=== PATIENT | female | born 1955 | race Caucasian/White ===

== ENCOUNTER 2020-12-14 09:32 | Inpatient (IN) ==
--- NOTE | 2020-12-08 10:49 | Anesthesiology Consultation ---
Date of Service December 08, 2020 Assessment & Plan (1) Encounter for pre-operative examination: Chart Review Chart Review: Acceptable Risk for Surgery and Patient NOT seen in Pre Admission Testing Per nursing assessment 12/03/2020, patient denies any recent travel. Wears proper PPE. No known Covid infection in the past 90 days. No known Covid positive contacts or Covid related symptoms. Covid test 12/07/20= negative Cystoscopy, right ureteroscopy with stent insertion/ureter biopsy 09/14/20= Done under [facility] with LMA #4. History Surgery Operation Date: 12/14/20 13:50 Proposed Procedures p Dismembered Laparoscopic Robotic Assisted Pyeloplasty - Dustin Carrasco MD Height/Weight Height: 5 ft 4 in Weight: 81.647 kg Allergies Allergy/AdvReac Type Severity Reaction Status Date / Time codeine Allergy Intermediate "knocks me Verified 12/03/20 13:52 out" Penicillins Allergy Intermediate yeast Verified 12/03/20 13:52 infection Tetanus Vaccines and Toxoid Allergy Intermediate hives at Verified 12/03/20 13:52 injection site Medications Home Medications Medication Instructions Recorded Confirmed Last Taken lisinopril 20 mg tablet 20 mg PO QAM 09/08/20 12/03/20 09/13/20 09:00 Past Medical History Medical History History of asthma stable Hypertension Kidney stone Liver nodule recent dx (to follow up with Dr Jacob December 2020) SPENCER (nonalcoholic steatohepatitis) Ureteral mass reason for procedure Past Family History Family History Grandmother No problems noted. Mother Family history of esophageal cancer Throat cancer Lung cancer Father Lung cancer Grandmother (Maternal) Diabetes Other No family history of adverse response to anesthesia Past Surgical History Surgical History H/O bladder repair surgery BLADDER SLING H/O foot surgery RT History of carpal tunnel surgery RT History of colonoscopy History of cystoscopy with stent History of lithotripsy X 8 History of tubal ligation [place] teeth removed Social History Smoking Status: Never smoker Do You Dip or Chew Tobacco: No Hx Alcohol Use: Yes Alcohol type: beer alcohol intake frequency: a few times a month Hx Substance Use: No substance use type: does not use Testing Laboratory Results Laboratory Tests 12/07/20 12/07/20 11:08 11:08 WBC 7.28 Hgb 14.3 Hct 42.1 Plt Count 180 Sodium 142 Potassium 3.8 Chloride 107 Carbon Dioxide 28 BUN 18 Creatinine 0.87 Glucose 81 12/07/2020 = AST: 35 ALT: 32 ALK PHOS: 94 Electrocardiogram Date: 09/10/20 NSR at 94bpm. Low voltage QRS. Chest X-Ray Date: 09/10/20 Findings: + NAD
[~2020-12-14 09:32] MED LIST: LR 15ML/HR IV SCH; MIDAZOLAM HCL 1 MG/ML 2ML VIAL ONE; ceFAZolin 2000MG 2,000 MG/15 ML SYR IV SCH; fentaNYL citrate 100 MCG/2 ML VIAL ONE
--- NOTE | 2020-12-14 11:02 | History & Physical Report ---
Date of Service December 14, 2020 Assessment & Plan (1) Hydronephrosis: (2) Ureteral stricture: Right UPJ stricture/obstruction Plan for robotic assisted laparoscopic dismembered pyeloplasty Risks, benefits, expectations reviewed History of Present Illness Primary Care Provider: Ibrahima Vega 65-year-old female with a right UPJ obstruction/scarringpresenting today for robotic dismembered pyeloplasty Allergies Allergy/AdvReac Type Severity Reaction Status Date / Time codeine Allergy Intermediate "knocks me Verified 12/14/20 09:48 out" Penicillins Allergy Intermediate yeast Verified 12/14/20 09:48 infection Tetanus Vaccines and Toxoid Allergy Intermediate hives at Verified 12/14/20 09:48 injection site Home Medications Medication Instructions Recorded Confirmed Type lisinopril 20 mg tablet 20 mg PO QAM 09/08/20 12/14/20 History acetaminophen [Tylenol Extra 500 mg PO QID PRN 12/14/20 12/14/20 History Strength] Past Med/Surg History Medical History History of asthma stable Hypertension Kidney stone Liver nodule recent dx (to follow up with Dr Jacob December 2020) SPENCER (nonalcoholic steatohepatitis) Ureteral mass reason for procedure Surgical History H/O bladder repair surgery BLADDER SLING H/O foot surgery RT History of carpal tunnel surgery RT History of colonoscopy History of cystoscopy with stent History of lithotripsy X 8 History of tubal ligation [place] teeth removed Family History Grandmother No problems noted. Mother Family history of esophageal cancer Throat cancer Lung cancer Father Lung cancer Grandmother (Maternal) Diabetes Other No family history of adverse response to anesthesia Social History Smoking Status: Never smoker Second Hand Exposure: Yes ( A CHILD); Do You Dip or Chew Tobacco: No; Tobacco Cessation Education Requested by Patient: No Hx Alcohol Use: Yes Alcohol type: beer Hx Substance Use: No Preferred Language: Ivorian Communication Ability: Effective Visual Impairment: No Limitations Sap Senior Developer Required: No Beliefs That Will Affect Care: None Current Living Situation: Spouse Other Information That Helps Us Care for You: No Feels Safe at Home: Yes Safety Concerns: Feels Safe At This Time Assistive Devices: Glasses Review of Systems All systems reviewed & are unremarkable except as noted in HPI & below Physical Exam Constitutional: well developed and well nourished Neck: neck nontender Respiratory: normal respiratory effort; no respiratory distress and does not use accessory muscles Cardiovascular: Rate/Rhythm: regular rate Vessels: radial pulses present Extremities: no edema Gastrointestinal (Abdomen): Inspection/Auscultation: abdomen normal to inspection Percussion/Palpation: abdomen soft; abdomen nontender and no guarding Musculoskeletal: Head/Neck/Chest: normocephalic and head atraumatic Extremities: extremities normal to inspection Skin: no rashes and no lesions Trauma: no evidence of skin trauma Neurologic: awake; not obtunded Speech / Cognition: normal speech Motor/Sensory: no tremor Psychiatric: Orientation: alert and oriented x 3 Lymphatic: no lymphadenopathy Results & Data ([facility]) Vital Signs (Past 12 Hours) Vital Signs Temp Pulse Resp BP Pulse Ox 12/14/20 09:51 36.9 C 92 H 18 164/84 H 95
[2020-12-14] MEDS ORDERED: BUPIVACAINE 0.5 % 5 MG/1 ML MPF 30ML VIAL ONE (11:13)
[2020-12-14] MEDS ORDERED: METOCLOPRAMIDE HCL INJ 5 MG/ML 2 ML VIAL IV PRN (11:14)
[2020-12-14] MEDS ORDERED: PROMETHAZINE HCL 12.5 MG in SODIUM CHLORIDE 0.9% 50 ML IV PRN (11:14)
[2020-12-14] MEDS ORDERED: ONDANSETRON INJ 2 MG/ML 2 ML VIAL IV PRN (11:14)
[2020-12-14] MEDS ORDERED: HYDROmorphone INJ 2 MG/ML SYR/VIAL IV PRN (11:14)
[2020-12-14] MEDS ORDERED: ePHEDrine sulfate 50 MG/ML AMP IV PRN (11:14)
[2020-12-14] MEDS ORDERED: fentaNYL citrate 100 MCG/2 ML VIAL IV PRN (11:14)
[2020-12-14] MEDS ORDERED: ATROPINE SULFATE 0.1 MG/ML 10ML SYR IV PRN (11:14)
[2020-12-14] MEDS ORDERED: HYDROmorphone INJ 2 MG/ML SYR/VIAL ONE (11:43)
[2020-12-14] MEDS ORDERED: ePHEDrine sulfate 50 MG/ML SYR ONE (11:55)
[2020-12-14] MEDS ORDERED: LARYING-O-JET KIT (LTA) ONE (11:55)
[2020-12-14] MEDS ORDERED: LIDOCAINE 2% 2 ML VIAL/AMP(20MG/ML) INFIL ONE (11:55)
[2020-12-14] MEDS ORDERED: DEXAMETHASONE SOD INJ 4 MG/ML VIAL ONE (11:55)
[2020-12-14] MEDS ORDERED: GLYCOPYRROLATE 0.2 MG/ML VIAL ONE (11:55)
[2020-12-14] MEDS ORDERED: NEOSTIGMINE METHYLSULFATE 5 MG/5 ML SYR ONE (11:55)
[2020-12-14] MEDS ORDERED: ROCURONIUM BROMIDE 10 MG/ML 5 ML VIAL IV ONE ×2 (11:55→13:37)
[2020-12-14] MEDS ORDERED: ONDANSETRON INJ 2 MG/ML 2 ML VIAL ONE (11:55)
[2020-12-14] MEDS ORDERED: PROPOFOL IV EMULSION 10 MG/ML 20 ML VIAL IV ONE (11:55)
[2020-12-14] MEDS ORDERED: PHENYLEPHRINE 100MCG/ML 5ML SYR ONE (11:55)
--- NOTE | 2020-12-14 15:03 | Operative Report ---
PG Post Operative Report Pre & Post Diagnosis Operation Date: 12/14/20 10:50 Pre-Op Diagnosis: Right Ureteral Stricture Post-Op Diagnosis: Right Ureteral Stricture; UPJ obstruction I identified the patient and participated in the time-out.: Yes Procedure Operation Date: 12/14/20 10:50 Actual Procedures p Robotic Dismembered Laparoscopic-Assisted Right Pyeloplasty(Not Applicable) - Dustin Carrasco MD Surgeon Mahamed Carrasco MD Midwife Practitioner Fina Contreras; Penelope Rodriguezace Estimated Blood Loss 50 Findings Consistent with Post-Op Diagnosis Specimens Periureteral tissue; UPJ Description of Procedure Patient was identified in the preoperative holding area, appropriate informed consents reviewed and completed and she was transported to the operating suite. Upon arrival she received appropriate preoperative antibiotics as well as general anesthesia. She was placed in the left side down right side up lateral decubitus position with the bed flexed. To begin the case I passed a Veress needle into the right upper quadrant and insufflated the abdomen to 15 mmHg. 4 robotic ports were marked in a straight line approximately 8 cm lateral to the border of the rectus muscle. First was placed approximately 2 fingerbreadths below the costal margin. A Visiport was utilized to place this. Other port sites were inspected and found to be free of adhesions and all placed without difficulty. The Veress needle had no trauma and was removed without difficulty. A 12 mm executive assistant to general counsel port was placed at the border of the rectus muscle approximately 5 cm above the umbilicus. An additional 5 mm port was placed at the border of the rectus muscle approximately 10 cm above the umbilicus. After docking the robot I incised the white line of Toldt and mobilized the colon off of the medial aspect of the kidney. I kocherized the duodenum sharply without use of cautery, I then exposed to the anterior surface of the inferior vena cava. I follow this until I encountered the lower aspect of the renal vein. I dissected laterally and exposed the psoas muscle. After elevating the kidney I was able to identify the ureter and traced the ureter towards the UPJ. Of note, approximately 4 cm below the kidney I encountered a dense rind around the ureter. Meticulous dissection was required to be able to free the ureter. This rind was relatively thick, and low certain locations, approximately 1 cm. I dissected this rind off of the ureter and the UPJ. When I exposed the true the renal pelvis, the majority of this was limited in mobility because of this rind. I did excise this rind and free up some mobility. Doing so I did make 1 hole in the anterior surface of the renal pelvis which I felt was slightly too far from where I would like to incise it for the pyeloplasty, in turn I decided to close this primarily utilizing a 4-0 Vicryl suture in running fashion. After freeing the ureter of the rind, there was a noticeable improvement in the peristalsis. The distal aspect of the ureter had been peristalsing throughout but peristalsis was not easily visualized in the area over this inflammatory rind existed. This length of ureter was approximately 3 to 4 cm, and after exposing it I did see restored peristalsis although there was still a somewhat adynamic segment just below the UPJ. At that time I elected to continue with the pyeloplasty and I made an incision in the renal pelvis just above the level of the UPJ. Inspection into the renal pelvis revealed healthy-appearing mucosa, some inspection distally revealed a relatively obliterated ureteral lumen. I spatulated the lumen slightly of the pelvis. I placed a stitch in the apex of the spatulation. I then finished my transection of the ureter and I inspected and removed an area of approximately 2 cm of ureteral length, before entirely excising it from the remainder of the distal ureter I spatulated laterally and placed an additional stitch in the apex of the spatulation. Given the lack of mobility because of the previous scarring, I was somewhat nervous about putting these back together in a tension- free fashion, fortunately this proved to not be an issue. I utilized a 3 OV lock suture to help take some of the tension off of this anastomosis. I then was able to complete the posterior wall reconstruction utilizing a 4-0 Vicryl suture. Before completing the anterior reanastomosis a 6 [place] by 24 cm double-J ureteral stent was placed in antegrade fashion. The proximal curl of the stent was tucked into the renal pelvis before completing the closure. Closure of the remaining part of this anastomosis was completed utilizing a 4-0 Vicryl. Hemostasis was excellent. BISMARK drain was guided into the right lateral aspect of the abdomen. The robot was undocked. All incisions were closed with 4-0 Monocryl. An additional 0 Vicryl was placed through the 12 mm port in the deep layer. Drain was sutured in place. Dermabond was placed over all incisions and the case was concluded. She was extubated and taken to the PACU in stable condition. There were no complications. The 2 specimens sent were 1. Tissue around the ureter, 2. UPJ. Fina Contreras and Penelope Watt assisted from incision to closure. I attest to the content of the Intraoperative Record and any orders documented therein. Any exceptions are noted below.
[2020-12-14 15:11] LABS: Basophils # (auto) 0.01 K/uL (0-0.2); Basophils % (auto) 0.1 %; Eosinophils # (auto) 0.02 K/uL (0-0.5); Eosinophils % (auto) 0.2 %; Hematocrit (blood only) 39.8 % (37-47); Hemoglobin 13.5 g/dL (12.0-16.0); Immature Granulocytes # (auto) 0.04 K/uL (0.00-0.02); Immature Granulocytes % (auto) 0.4 %; Lymphocytes # (auto) 1.58 K/uL (1.2-3.4); Lymphocytes % (auto) 15.4 %; Mean Corpuscular Hemoglobin 31.5 pg (25-34); Mean Platelet Volume 8.6 fL (7.4-10.4); Neutrophils % (auto) 82.9 %; Platelet Count 177 K/uL (130-400); RDW Coefficient of Variation 12.9 % (11.5-14.5); RDW Standard Deviation 44.1 fL (36.4-46.3); Red Blood Count 4.28 M/uL (4.2-5.4); White Blood Count 10.25 K/uL (4.8-10.8)
--- NOTE | 2020-12-14 15:11 | XRay Report ---
XR KUB/Abdomen 1 view CLINICAL HISTORY: post op stent placement COMPARISON STUDY: No previous studies for comparison. FINDINGS: There is no pathologic bowel dilatation. There is a right upper quadrant surgical drain. Th ere is a right-sided nephroureteral stent. The distal pigtail is not fully formed, and potentially ex tends into the proximal urethra. There is subcutaneous gas within the pelvis, likely postsurgical. Th ere is a linear gas within the right upper quadrant. This likely represents postsurgical subcutaneous gas. The pattern is not typical for pneumobilia or intrahepatic venous gas. IMPRESSION: 1. Nonobstructive bowel gas pattern 2. Right upper quadrant surgical drain 3. Nonspecific gas projected over the liver, likely subcutaneous 4. Subcutaneous gas within the pelvis 5. Right-sided nephroureteral stent ACT 112: Negative or not required by law. Electronically signed by: Marcos Champion M.D. 12/14/2020 3:09 PM
[2020-12-14 15:27] LABS: BUN Creatinine Ratio 12.5 (10-20); Calcium 9.1 mg/dl (8.5-10.1); Creatinine Clr Calc Pharmacy 52.7 ml/min; Est GFR (Non-African American) 52.6; Potassium 4.3 mmol/L (3.5-5.1)
--- NOTE | 2020-12-14 15:34 | Anesthesiology Progress Note ---
Date of Service December 14, 2020 Anesthesia Post Procedure Vital Signs Vital Signs: Temp Pulse Pulse Resp BP BP Pulse Ox 12/14/20 15:25 36.5 C 94 H 14 148/81 H 94 12/14/20 15:15 94 H 14 139/80 94 12/14/20 15:05 91 H 14 142/80 H 94 12/14/20 14:55 90 14 141/80 H 96 12/14/20 14:47 37.2 C 91 H 14 127/68 95 12/14/20 09:51 36.9 C 92 H 18 164/84 H 95 Pain Intensity Right Flank: Pain Intensity: 4 Transfer of Care Handoff Completed per policy Notes Mental Status: alert / awake / arousable and participated in evaluation Patient Amnestic to Procedure: Yes Nausea / Vomiting: adequately controlled Pain: adequately controlled Airway Patency, RR, SpO2: stable & adequate BP & HR: stable & adequate Hydration State: stable & adequate Anesthetic Complications: no major complications apparent and Pt Satisfied with anesthetic care
[2020-12-14 15:49] LABS: Mean Corpuscular Hgb Conc 33.9 g/dL (32-36)
[2020-12-14] MEDS ORDERED: MoRPHine SULFATE 2 MG/ML CARP IV PRN (16:15)
[2020-12-14] MEDS: LACTATED RINGER'S 1,000 ML IV SCH (16:58)
[2020-12-14] MEDS: ACETAMINOPHEN 1,000 MG/100 ML VIAL IV SCH (17:00)
[2020-12-14] MEDS: ceFAZolin 2000MG 2,000 MG/15 ML SYR IV SCH (20:30)
[2020-12-14] MEDS: HEPARIN SOD 5,000 UNIT/0.5 ML VIAL SQ SCH (20:31)
[2020-12-14] MEDS: MoRPHine SULFATE 4 MG/ML 1 ML CARP\\VIAL IV PRN (20:36)
[2020-12-14] MEDS: traMADol HCL 50 MG TABLET PO PRN (22:23)
[2020-12-15] MEDS: ACETAMINOPHEN 1,000 MG/100 ML VIAL IV SCH ×3 (01:15→16:44)
[2020-12-15] MEDS: LACTATED RINGER'S 1,000 ML IV SCH ×3 (01:17→22:09)
[2020-12-15] MEDS: ceFAZolin 2000MG 2,000 MG/15 ML SYR IV SCH (04:02)
[2020-12-15] MEDS: ONDANSETRON INJ 2 MG/ML 2 ML VIAL IV PRN ×2 (05:48→22:19)
[2020-12-15] MEDS: MoRPHine SULFATE 4 MG/ML 1 ML CARP\\VIAL IV PRN ×3 (05:48→22:19)
[2020-12-15 06:27] LABS: Hematocrit (blood only) 39.5 % (37-47); Hemoglobin 13.3 g/dL (12.0-16.0); Immature Granulocytes # (auto) 0.03 K/uL (0.00-0.02); Immature Granulocytes % (auto) 0.2 %; Lymphocytes # (auto) 1.57 K/uL (1.2-3.4); Lymphocytes % (auto) 11.2 %; Mean Corpuscular Hemoglobin 31.2 pg (25-34); Mean Corpuscular Hgb Conc 33.7 g/dL (32-36); Mean Corpuscular Volume 92.7 fL (80-100); Mean Platelet Volume 8.7 fL (7.4-10.4); Monocytes % (auto) 5.7 %; Neutrophils # (auto) 11.63 K/uL (1.4-6.5); Neutrophils % (auto) 82.9 %; Platelet Count 168 K/uL (130-400); RDW Coefficient of Variation 12.7 % (11.5-14.5); RDW Standard Deviation 42.9 fL (36.4-46.3); Red Blood Count 4.26 M/uL (4.2-5.4); White Blood Count 14.03 K/uL (4.8-10.8)
[2020-12-15 06:58] LABS: BUN Creatinine Ratio 16.6 (10-20); Calcium 8.8 mg/dl (8.5-10.1); Creatinine Clr Calc Pharmacy 56.3 ml/min; Est GFR (African American) 66.1
--- NOTE | 2020-12-15 08:14 | Urology Progress Note ---
Date of Service December 15, 2020 Assessment & Plan (1) Ureteral stricture: (2) Hydronephrosis: pod #1 s/p pyeloplasty - hold on clear liquids now - khalil out this AM - BISMARK out later this afternoon - ambulate - labs stable - vitals stable Admission and Anticipated Discharge Date Admission Date: December 14, 2020 Subjective doing ok after pyeloplasty expected post op pain nausea and vomiting x1 overnight overall, better this AM than last night Physical Exam Physical Exam: incisions appropriate drain serosang urine clear Results & Data ([facility]) Vital Signs (Past 12 Hours) Vital Signs Temp Pulse Pulse Resp BP Pulse Ox 12/15/20 07:13 36.7 C 100 H 20 118/74 91 12/15/20 06:02 103 H 92 12/15/20 03:58 36.8 C 110 H 18 144/72 H 95 12/14/20 22:54 36.7 C 111 H 16 114/69 95 PG Care Time/CCT Total # of Minutes Spent Total Time Spent with Patient: Total time spent is greater than 50% in coordination of care (as documented) at patient's floor/unit and/or counseling patient: Coding Level of Care Code 84327 Subseq Hosp Care Lvl 2 Diagnoses Ureteral stricture N13.5 Hydronephrosis N13.30
[2020-12-15] MEDS: lisinopril 20 MG TAB PO SCH (09:15)
[2020-12-15] MEDS: HEPARIN SOD 5,000 UNIT/0.5 ML VIAL SQ SCH ×2 (09:16→20:57)
[2020-12-15] MEDS: KETOROLAC TROMETHAMINE 15 MG/ML VIAL IV PRN (12:19)
[2020-12-16] MEDS: traMADol HCL 50 MG TABLET PO PRN ×3 (00:23→18:07)
[2020-12-16] MEDS: KETOROLAC TROMETHAMINE 15 MG/ML VIAL IV PRN ×3 (00:24→21:28)
[2020-12-16] MEDS: ACETAMINOPHEN 1,000 MG/100 ML VIAL IV SCH ×3 (00:28→17:28)
[2020-12-16] MEDS: MoRPHine SULFATE 4 MG/ML 1 ML CARP\\VIAL IV PRN (00:59)
[2020-12-16 05:54] LABS: Basophils # (auto) 0.02 K/uL (0-0.2); Basophils % (auto) 0.1 %; Eosinophils # (auto) 0.02 K/uL (0-0.5); Eosinophils % (auto) 0.1 %; Hematocrit (blood only) 37.9 % (37-47); Hemoglobin 12.6 g/dL (12.0-16.0); Immature Granulocytes # (auto) 0.04 K/uL (0.00-0.02); Immature Granulocytes % (auto) 0.3 %; Lymphocytes % (auto) 18.1 %; Mean Corpuscular Hemoglobin 31.5 pg (25-34); Mean Corpuscular Hgb Conc 33.2 g/dL (32-36); Mean Corpuscular Volume 94.8 fL (80-100); Monocytes # (auto) 0.87 K/uL (0.11-0.59); Monocytes % (auto) 5.6 %; Neutrophils # (auto) 11.73 K/uL (1.4-6.5); Neutrophils % (auto) 75.8 %; Platelet Count 160 K/uL (130-400); RDW Standard Deviation 44.9 fL (36.4-46.3); White Blood Count 15.48 K/uL (4.8-10.8)
[2020-12-16 06:21] LABS: BUN Creatinine Ratio 14.7 (10-20); Calcium 8.4 mg/dl (8.5-10.1); Creatinine Clr Calc Pharmacy 47.1 ml/min; Est GFR (African American) 53.3; Potassium 4.1 mmol/L (3.5-5.1)
--- NOTE | 2020-12-16 07:49 | Urology Progress Note ---
Date of Service December 16, 2020 Assessment & Plan (1) Hydronephrosis: POD#2 s/p pyeloplasty gradually recovering not ready for d/c home hope for improved pain control wean O2 try to ambulate Admission and Anticipated Discharge Date Admission Date: December 14, 2020 Subjective doing ok light headed and dizzy with walking pain still subtantial no hematuria, voiding well labs stable on NC 02 this am borderline tachy, slightly hypotensive gradually improving Review of Systems Review of Systems: All systems reviewed & are unremarkable except as noted in HPI & below Physical Exam Physical Exam: incisions appropriate abd soft, mildly tender to palpation no edema NC [address] Results & Data ([facility]) Vital Signs (Past 12 Hours) Vital Signs Temp Pulse Pulse Resp BP BP Pulse Ox 12/16/20 07:14 36.7 C 93 H 16 101/63 95 12/16/20 02:12 37 C 102 H 99/56 L 12/16/20 01:22 99 H 20 94 12/15/20 22:36 94 12/15/20 22:30 37.2 C 96 H 22 93/56 L 86 L PG Care Time/CCT Total # of Minutes Spent Total Time Spent with Patient: Total time spent is greater than 50% in coordination of care (as documented) at patient's floor/unit and/or counseling patient: Coding Level of Care Code 60958 Subseq Hosp Care Lvl 2 Diagnoses Hydronephrosis N13.30
[2020-12-16] MEDS: LACTATED RINGER'S 1,000 ML IV SCH ×2 (08:10→18:08)
[2020-12-16] MEDS: HEPARIN SOD 5,000 UNIT/0.5 ML VIAL SQ SCH ×2 (08:48→21:28)
[2020-12-16] MEDS: lisinopril 20 MG TAB PO SCH (08:49)
[2020-12-17] MEDS: ACETAMINOPHEN 1,000 MG/100 ML VIAL IV SCH ×2 (01:57→09:39)
[2020-12-17] MEDS: LACTATED RINGER'S 1,000 ML IV SCH (03:10)
[2020-12-17] MEDS: traMADol HCL 50 MG TABLET PO PRN ×2 (06:14→18:32)
[2020-12-17 06:29] LABS: Basophils # (auto) 0.01 K/uL (0-0.2); Basophils % (auto) 0.1 %; Eosinophils # (auto) 0.07 K/uL (0-0.5); Eosinophils % (auto) 0.7 %; Hematocrit (blood only) 33.9 % (37-47); Hemoglobin 11.5 g/dL (12.0-16.0); Immature Granulocytes # (auto) 0.03 K/uL (0.00-0.02); Immature Granulocytes % (auto) 0.3 %; Lymphocytes % (auto) 18.6 %; Mean Corpuscular Hemoglobin 31.3 pg (25-34); Mean Corpuscular Hgb Conc 33.9 g/dL (32-36); Mean Corpuscular Volume 92.1 fL (80-100); Mean Platelet Volume 8.5 fL (7.4-10.4); Monocytes # (auto) 0.62 K/uL (0.11-0.59); Monocytes % (auto) 6.1 %; Neutrophils # (auto) 7.56 K/uL (1.4-6.5); Neutrophils % (auto) 74.2 %; Platelet Count 121 K/uL (130-400); RDW Coefficient of Variation 12.6 % (11.5-14.5); RDW Standard Deviation 42.9 fL (36.4-46.3); Red Blood Count 3.68 M/uL (4.2-5.4); White Blood Count 10.19 K/uL (4.8-10.8)
[2020-12-17 06:57] LABS: BUN Creatinine Ratio 15.8 (10-20); Calcium 8.4 mg/dl (8.5-10.1); Creatinine Clr Calc Pharmacy 62.4 ml/min; Est GFR (African American) 74.7; Est GFR (Non-African American) 64.5; Potassium 3.8 mmol/L (3.5-5.1)
[2020-12-17] MEDS ORDERED: bisacodyL 10 MG SUPP PR STA (08:10)
--- NOTE | 2020-12-17 08:10 | Urology Progress Note ---
Date of Service December 17, 2020 Assessment & Plan (1) Ureteral stricture: (2) Hydronephrosis: Status post right robotic pyeloplasty Pathology returned as dense scar, no malignancy Gradually progressing although is very slowly I suspect bowel function is contributing to this Consider Dulcolax suppository today Try to be out of bed as much as possible no chair and ideally standing Hope to see her start to turn the corner later today Hep-Lock IV fluids, advance diet Admission and Anticipated Discharge Date Admission Date: December 14, 2020 Subjective Still becoming lightheaded and dizzy with ambulation Overall, she does feel that she is improving, but it is happening slowly Labs appropriate Physical Exam Physical Exam: Incisions appropriate, she is appropriately interactive, abdomen is soft but tender Constitutional: well developed and well nourished Respiratory: no respiratory distress Cardiovascular: Extremities: no pedal edema Gastrointestinal (Abdomen): Inspection/Auscultation: abdomen normal to inspection Results & Data ([facility]) Vital Signs (Past 12 Hours) Vital Signs Temp Pulse Resp BP Pulse Ox 12/17/20 07:26 36.8 C 89 16 126/74 93 12/16/20 22:26 37.1 C 93 H 16 129/71 91 PG Care Time/CCT Total # of Minutes Spent Total Time Spent with Patient: Total time spent is greater than 50% in coordination of care (as documented) at patient's floor/unit and/or counseling patient: Coding Level of Care Code 51338 Subseq Hosp Care Lvl 2 Diagnoses Ureteral stricture N13.5 Hydronephrosis N13.30
[2020-12-17] MEDS: HEPARIN SOD 5,000 UNIT/0.5 ML VIAL SQ SCH ×2 (09:40→20:18)
[2020-12-17] MEDS: KETOROLAC TROMETHAMINE 15 MG/ML VIAL IV PRN ×2 (09:41→15:44)
[2020-12-17] MEDS: lisinopril 20 MG TAB PO SCH (09:41)
[2020-12-18] MEDS: traMADol HCL 50 MG TABLET PO PRN (02:28)
[2020-12-18 06:56] LABS: Basophils # (auto) 0.01 K/uL (0-0.2); Basophils % (auto) 0.1 %; Eosinophils # (auto) 0.07 K/uL (0-0.5); Eosinophils % (auto) 0.9 %; Hematocrit (blood only) 33.5 % (37-47); Hemoglobin 11.4 g/dL (12.0-16.0); Immature Granulocytes # (auto) 0.01 K/uL (0.00-0.02); Immature Granulocytes % (auto) 0.1 %; Lymphocytes # (auto) 2.14 K/uL (1.2-3.4); Mean Corpuscular Hemoglobin 31.3 pg (25-34); Mean Platelet Volume 8.9 fL (7.4-10.4); Monocytes # (auto) 0.56 K/uL (0.11-0.59); Monocytes % (auto) 7.1 %; Neutrophils # (auto) 5.15 K/uL (1.4-6.5); Neutrophils % (auto) 64.8 %; Platelet Count 144 K/uL (130-400); RDW Coefficient of Variation 12.6 % (11.5-14.5); RDW Standard Deviation 42.9 fL (36.4-46.3); Red Blood Count 3.64 M/uL (4.2-5.4); White Blood Count 7.94 K/uL (4.8-10.8)
[2020-12-18] MEDS: lisinopril 20 MG TAB PO SCH (07:44)
[2020-12-18] MEDS: HEPARIN SOD 5,000 UNIT/0.5 ML VIAL SQ SCH ×2 (07:44→20:11)
--- NOTE | 2020-12-18 08:00 | Urology Progress Note ---
Date of Service December 18, 2020 Assessment & Plan (1) Ureteral stricture: Status post ureterolysis and pyeloplasty Labs appropriate Recovery, progressing slowly - but she seems to be turning the corner -advance diet -ambulate - likely d/c home tomorrow (2) Hydronephrosis: Admission and Anticipated Discharge Date Admission Date: December 14, 2020 Subjective Slowly recovering from her ureterolysis and pyeloplasty fortunately, she seems to be turning a corner flatus and BM yesterday with subsequent improvement in abdominal pressure no longer feeling light headed or dizzy with walking pain improved anxious for a diet Physical Exam Physical Exam: incisions appropriate out of bed in the chair - comfortable appearing Constitutional: well developed and well nourished Respiratory: no respiratory distress Cardiovascular: Extremities: no pedal edema Gastrointestinal (Abdomen): Inspection/Auscultation: abdomen normal to inspection Results & Data ([facility]) Vital Signs (Past 12 Hours) Vital Signs Temp Pulse Pulse Resp BP BP Pulse Ox 12/18/20 07:42 37.2 C 86 16 122/69 94 12/17/20 22:50 37.3 C 94 H 18 138/72 91 PG Care Time/CCT Total # of Minutes Spent Total Time Spent with Patient: Total time spent is greater than 50% in coordination of care (as documented) at patient's floor/unit and/or counseling patient: Coding Level of Care Code 08422 Subseq Hosp Care Lvl 2 Diagnoses Ureteral stricture N13.5 Hydronephrosis N13.30
[2020-12-18 08:02] LABS: BUN Creatinine Ratio 12.3 (10-20); Calcium 8.6 mg/dl (8.5-10.1); Creatinine Clr Calc Pharmacy 77.3 ml/min; Est GFR (African American) 96.9; Est GFR (Non-African American) 83.6; Potassium 3.7 mmol/L (3.5-5.1)
[2020-12-19] MEDS: traMADol HCL 50 MG TABLET PO PRN (01:47)
[2020-12-19 05:56] LABS: Basophils # (auto) 0.02 K/uL (0-0.2); Basophils % (auto) 0.3 %; Eosinophils # (auto) 0.12 K/uL (0-0.5); Eosinophils % (auto) 1.8 %; Hematocrit (blood only) 33.2 % (37-47); Hemoglobin 11.3 g/dL (12.0-16.0); Immature Granulocytes # (auto) 0.03 K/uL (0.00-0.02); Immature Granulocytes % (auto) 0.4 %; Lymphocytes # (auto) 2.14 K/uL (1.2-3.4); Lymphocytes % (auto) 31.6 %; Mean Corpuscular Hemoglobin 31.5 pg (25-34); Mean Corpuscular Volume 92.5 fL (80-100); Mean Platelet Volume 8.2 fL (7.4-10.4); Monocytes # (auto) 0.63 K/uL (0.11-0.59); Monocytes % (auto) 9.3 %; Neutrophils # (auto) 3.84 K/uL (1.4-6.5); Neutrophils % (auto) 56.6 %; Platelet Count 156 K/uL (130-400); RDW Coefficient of Variation 12.8 % (11.5-14.5); RDW Standard Deviation 43.4 fL (36.4-46.3); Red Blood Count 3.59 M/uL (4.2-5.4); White Blood Count 6.78 K/uL (4.8-10.8)
[2020-12-19 06:28] LABS: BUN Creatinine Ratio 16.9 (10-20); Calcium 8.5 mg/dl (8.5-10.1); Creatinine Clr Calc Pharmacy 85.3 ml/min; Est GFR (African American) 106.4; Est GFR (Non-African American) 91.8; Potassium 3.6 mmol/L (3.5-5.1)
[2020-12-19] MEDS: HEPARIN SOD 5,000 UNIT/0.5 ML VIAL SQ SCH (08:01)
[2020-12-19] MEDS: lisinopril 20 MG TAB PO SCH (08:03)
--- NOTE | 2020-12-19 09:46 | Urology Progress Note ---
Date of Service December 19, 2020 Assessment & Plan (1) Hydronephrosis: Status post ureterolysis and robotic pyeloplasty Progressing appropriately Stable for discharge home Admission and Anticipated Discharge Date Admission Date: December 14, 2020 Subjective Has continued to make good progress over the past 24 hours She is ambulatory Pain well controlled Tolerating diet Labs remained stable Anxious for discharge home Physical Exam Physical Exam: Incisions healing appropriately Constitutional: well developed and well nourished Respiratory: no respiratory distress Cardiovascular: Extremities: no pedal edema Gastrointestinal (Abdomen): Inspection/Auscultation: abdomen normal to inspection Results & Data ([facility]) Vital Signs (Past 12 Hours) Vital Signs Temp Pulse Pulse Resp BP BP Pulse Ox 12/19/20 07:47 37.1 C 84 18 114/63 96 12/18/20 22:25 37.1 C 97 H 18 123/73 95 PG Care Time/CCT Total # of Minutes Spent Total Time Spent with Patient: Total time spent is greater than 50% in coordination of care (as documented) at patient's floor/unit and/or counseling patient: Coding Level of Care Code 99569 Subseq Hosp Care Lvl 2 Diagnoses Hydronephrosis N13.30
--- NOTE | 2020-12-19 11:20 | Discharge Summary ---
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 Discharge Data Allergies Allergy/AdvReac Type Severity Reaction Status Date / Time codeine Allergy Intermediate "knocks me Verified 12/14/20 09:48 out" Penicillins Allergy Intermediate yeast Verified 12/14/20 09:48 infection Tetanus Vaccines and Toxoid Allergy Intermediate hives at Verified 12/14/20 09:48 injection site Procedures Performed Operation Date: 12/14/20 10:50 Actual Procedures p Robotic Dismembered Laparoscopic-Assisted Right Pyeloplasty(Not Applicable) - Dustin Carrasco MD Hospital Course (1) Hydronephrosis: (2) Ureteral stricture: Hydronephrosis secondary to a UPJ obstruction Underwent a robotic dismembered pyeloplasty with ureterolysisdense scarring around the proximal ureter and UPJ She had a gradual recovery after the surgery. Initially she became quite lightheaded and dizzy every time she moved from a supine to seated position or from a seated to standing position. Blood pressures were somewhat low, but not drastically. Over the course of approximately 48 hours she saw some signs of improvement. She began to pass flatus and move her bowels which seem to relieve a significant amount of abdominal pressure and simultaneously the dizziness and lightheadedness resolved. We gradually advanced her diet and she was ultimately in stable condition for discharge home. Her creatinine was stable, his CBC stable. Pain well controlled, ambulating, tolerating a diet, moving her bowels. Final pathology revealed dense scarring but no malignancy at the UPJ Total Time Total Time Spent Total Time Spent (In Minutes): 20 Discharge Plan Discharge Items Patient Disposition: Home - Self-Care Reason For Visit: Ureteral Stricture Discharge Diagnosis: Ureteral stricture Activity: Per Instructions section Lifting: No more than 10 pounds Bathing: No limitations Bathing Comment: No tub baths or soaking. Okay to shower tomorrow. Sexual Activity: Wait until after follow-up appointment Exercise/Sports: Wait until after follow-up appointment Driving/Machine Use: Do not drive while taking narcotic pain medication Non-emergency contact: Surgeon and Urologist Call non-emergency contact if: your pain is not controlled, your temperature is above 101, your wound has increased redness, your wound has increased drainage and your wound pain has increased Follow-up/Referrals: Dustin Carrasco MD [Physician] - 12/27/20 11:40 am Ibrahima Vega [Primary Care Provider] - Diet: Regular Addtl Attending Provider Instructions: Please take all medications as prescribed and keep all follow-ups as scheduled. Please call our office at [phone] with any questions, concerns or need to reschedule appointments for any reason. We are happy to assist you. Recovering at home: We recommend having someone with you for the first few days after surgery to help care for you. It is okay to shower tomorrow. Please avoid swimming, bathing or using hot tub until incisions are well healed. Avoid driving until you are not requiring pain medication any further. Walk at least a few times a day. Increase your distance, as you feel able. Stairs in your home are okay. Please avoid strenuous or sexual activity until your follow-up. We recommend using stool softener (i.e. Colace) to prevent constipation and straining, especially the first two weeks post operatively. Call [facility] at [phone] if you experience: Chest pain or trouble breathing (call [phone] or go to the hospital). Fever of 101F or higher Symptoms of infection at incision site, including redness or swelling, warmth, or bad-smelling drainage If you have catheter, and you notice: o Bloody urine or drainage that is dark red or has large clots (Please remember a small amount of blood is normal) o No drainage from the catheter for more than 6 hours o The catheter comes out of your bladder Pain that is not controlled with medicines Pending Studies at Discharge: Yes Studies:: Pathology Stand-Alone Forms: My [facility] [employer], Smoking Cessation Medications and DC Order Prescriptions: New tramadol 50 mg tablet 50 mg PO BID PRN (Reason: pain) Qty: 10 RF: 0 docusate sodium [Colace] 100 mg capsule 100 mg PO BID Qty: 60 RF: 0 nitrofurantoin monohyd/m-cryst [Macrobid] 100 mg capsule 100 mg PO BID 7 Days Qty: 14 RF: 0 Continued lisinopril 20 mg tablet 20 mg PO QAM RF: 0 acetaminophen [Tylenol Extra Strength] 500 mg Tablet 500 mg PO QID PRN (Reason: Pain) RF: 0 Discharge Orders: Discharge Order (Routine); Ordered 12/19/20 Ordered By: Dustin Westfall/Other Patient Handouts: Anatomy of the Female Urinary Tract, Healthy Kidneys, Monitoring Kidney Health, How Your Kidneys Work Admission Data Admit Date/Time: 12/14/20 14:31 Attending Provider: Dustin Carrasco Admit Provider: Dustin Carrasco Primary Care Provider: Ibrahima Vega Other Interventions: Discharge Summary Assessment (RN) Last Done: 12/19/20 09:59 Coding Level of Care Code D/C Day Management <30 mins Diagnoses Hydronephrosis N13.30 Ureteral stricture N13.5
== END 2020-12-19 11:41 | disposition home or self-care (01) ==
LOC: ASU 09:32 → 3N 14:31

== ENCOUNTER 2025-01-01 05:56 | Inpatient (IN) ==
--- NOTE | 2024-12-23 10:45 | PAT Medication Instructions ---
Medication Instructions Date of Service December 23, 2024 Home Medications lisinopril 20 mg tablet 20 mg PO QAM acetaminophen 500 mg tablet (Tylenol Extra Strength) 500 mg PO UD PRN Pain melatonin 10 mg tablet 10 mg PO HS PRN Sleep escitalopram oxalate 5 mg tablet 5 mg PO QAM cholecalciferol (vitamin D3) 50 mcg (2,000 unit) capsule (Vitamin D3) 50 mcg PO DAILY rosuvastatin 10 mg tablet 10 mg PO QAM MEDICATION INSTRUCTIONS: DO NOT take the morning of surgery lisinopril 20 mg tablet 20 mg PO QAM cholecalciferol (vitamin D3) 50 mcg (2,000 unit) capsule (Vitamin D3) 50 mcg PO DAILY Take morning of surgery With a small sip of water, OTHERWISE NOTHING TO EAT OR DRINK AFTER MIDNIGHT: acetaminophen 500 mg tablet (Tylenol Extra Strength) 500 mg PO UD PRN Pain escitalopram oxalate 5 mg tablet 5 mg PO QAM rosuvastatin 10 mg tablet 10 mg PO QAM Take evening before surgery acetaminophen 500 mg tablet (Tylenol Extra Strength) 500 mg PO UD PRN Pain melatonin 10 mg tablet 10 mg PO HS PRN Sleep Other Notes If you have any questions please call us at [phone] or [phone] or [phone] or [phone]
--- NOTE | 2024-12-29 09:52 | Anesthesiology Consultation ---
Date of Service December 29, 2024 Assessment & Plan (1) Encounter for pre-operative examination: - medical clearance 12/25/24: "...c-spine surgery...has been under anesthesia before with no issue...cleared for surgery with Ayala perioperative risk of 0.1%...occlusion and stenosis of bilateral carotid arteries < 50% stenosis bilaterally recent U/S...upcoming cardio appt..." - Patient was referred to cardiology by her PCP per 11/06/24 office note. Case discussed in detail with Dr. Donis who advised if carotid report is stable, patient can proceed prior to 02/05/25 cardiology evaluation. - PCP office note 11/06/24: "...10/11/24 following a mechanical fall...concussion...doing a lot better since her discharge...occlusion and stenosis of bilateral carotid arteries U/S ordered cardio referral placed...new murmur noted on exam today. denies symptoms...cardio referral..." Chart Review Chart Review: Acceptable Risk for Surgery and Patient seen in Pre Admission Testing Teaching & Discussion Pre-Anesthesia Teaching/Discussion Notes: Instructed NPO after midnight before surgery, except medications with 15 cc of water. Medication instructions provided according to the PAT guidelines. History Surgery Operation Date: 01/01/25 07:45 Proposed Procedures p C5 Corpectomy, Fusion C4-C6 with Spinal Cord Monitoring - Venkata Peng, Height/Weight Height: 5 ft 2 in Weight: 78.1 kg Allergies Allergy/AdvReac Type Severity Reaction Status Date / Time Tetanus Vaccines and Toxoid Allergy Intermediate hives at Verified 12/22/24 11:13 injection site Penicillins AdvReac Mild yeast Verified 12/22/24 11:13 infection Medications Home Medications Medication Instructions Recorded Confirmed Last Taken lisinopril 20 mg tablet 20 mg PO QAM 09/08/20 12/22/24 11/20/23 acetaminophen 500 mg tablet 500 mg PO UD PRN Pain 12/14/20 12/22/24 11/20/23 (Tylenol Extra Strength) melatonin 10 mg tablet 10 mg PO HS PRN Sleep 09/07/23 12/22/24 11/20/23 escitalopram oxalate 5 mg tablet 5 mg PO QAM 11/14/23 12/22/24 11/20/23 cholecalciferol (vitamin D3) 50 50 mcg PO DAILY 12/22/24 12/22/24 Unknown mcg (2,000 unit) capsule (Vitamin D3) rosuvastatin 10 mg tablet 10 mg PO QAM 12/22/24 12/22/24 Unknown Past Medical History Medical History (Updated 12/30/24 @ 12:32 by Nori Oliveira PA-C) Anxiety and depression Carotid artery stenosis < 50% stenosis ICAs bilat History of asthma Childhood History of kidney stones History of urinary incontinence Hx of hyperlipidemia Hypertension controlled, stable per pt Liver nodule no need to follow with Dr Jacob any longer per patient SPENCER (nonalcoholic steatohepatitis) Prediabetes Systolic murmur no echo, cardio eval after surgery Patient denies h/o stroke, seizures, heart attack, heart failure, blood clots/DVTs or blood transfusions. Exercise / Class Metabolic Activity II 4-5 Yardwork/Stairs/Walk up hill (denies chest discomfort or shortness of breath with one flight of stairs) Past Family History Family History Grandmother No problems noted. Mother Family history of esophageal cancer Throat cancer Lung cancer History of stroke Father Lung cancer Grandmother (Maternal) Diabetes Other No family history of adverse response to anesthesia Past Surgical History Surgical History H/O bladder repair surgery Bladder sling H/O foot surgery Right History of carpal tunnel surgery Right 08/2023, left CTR and left ulnar nerve sx. 11/21/23, right CTR and right ulnar nerve sx. History of colonoscopy 2018 History of cystoscopy with stent History of lithotripsy x8 History of nephrectomy, right non functioning kidney per patient, removed 04[place]20/20[place] [facility] [place], follows with Dr camacho History of surgery Laparoscopic Robotic Assisted Pyeloplasty: 12/14/20: Grade view 3, MAC#3.0, ETT 7.0 at [facility] History of tubal ligation [place] teeth removed Past Anesthesia History No Hx of Anesthesia Complications and No Family Hx of Anesthesia Complications History of PONV No Hx of PONV and No Hx of Motion Sickness Social History Smoking Status: Never smoker Do You Dip or Chew Tobacco: No Hx Alcohol Use: Yes Alcohol type: beer alcohol intake frequency: holidays/special occasions only Hx Substance Use: No substance use type: does not use Review of Systems Patient denies chest pain, shortness of breath, dyspnea on exertion, snoring, witnessed apneas, reflux, fever, chills, cough, wheezing, or palpitations. Physical Exam Vital Signs Vitals BP 131/73 P 87 TEMP 97.8 SP02 94% on RA RESP 19 Physical Patient resting comfortably in chair in no acute distress, alert and oriented, responding appropriately throughout visit Full cervical extension range of motion without pain TMD 3 finger breadths Mallampati Score 3 Dentition: several caps, denies chipped or loose teeth, implants or bridges Lungs: normal respiratory effort. Good air movement, clear throughout to auscultation, no adventitious breath sounds Cardiac: regular rate and rhythm, 2/6 systolic murmur, no gallops or rubs Carotid arteries: negative bruit bilat Lab Results Anesthesia Preop Results Results Anesthesia Widget: WBC 5.22 K/ul (4.8-10.8) 12/29/24 Hgb 13.5 g/dl (12.0-16.0) 12/29/24 Hct 39.3 % (37.0-47.0) 12/29/24 Plt 141 K/uL (130-400) 12/29/24 Na 140 mmol/L (136-145) 12/29/24 K 3.7 mmol/L (3.5-5.1) 12/29/24 Cl 107 mmol/L (98-107) 12/29/24 CO2 28 mmol/L (21-32) 12/29/24 BUN 22 mg/dl (6-23) 12/29/24 Creat 1.07 mg/dl (0.6-1.2) 12/29/24 Glucose Level 99 mg/dl (70-99(Fasting)) 12/29/24 PT 11.2 Seconds (9.0-12.0) 12/29/24 PTT 28 Seconds (21-31) 12/29/24 INR 1.0 (0.9-1.1) 12/29/24 Urine Color Yellow 12/29/24 Urine Appearance Clear (Clear) 12/29/24 Urine pH 5.5 (4.5-7.5) 12/29/24 Urine Specific [place] 1.014 (1.000-1.030) 12/29/24 Urine Protein Negative (Negative) 12/29/24 Urine Glucose (UA) Negative (Negative) 12/29/24 Urine Ketones Negative (Negative) 12/29/24 Urine Blood Negative (Negative) 12/29/24 Urine Nitrite Negative (Negative) 12/29/24 Urine Bilirubin Negative (Negative) 12/29/24 Urine Urobilinogen Negative (Negative) 12/29/24 Urine Leukocyte Esterase Trace (Negative) H 12/29/24 Urine WBC (Auto) 6-10 /hpf (0-5) H 12/29/24 Urine RBC (Auto) 0-2 /hpf (0-2) 12/29/24 Urine Hyaline Casts (Auto) 0-2 /lpf (0-2) 12/29/24 Urine Epithelial Cells (Auto) 0-2 /hpf (0-2) 12/29/24 Urine Bacteria (Auto) None Seen (None Seen) 12/29/24 Blood Type A Positive 12/29/24 Antibody Screen NEGATIVE 12/29/24 Testing Electrocardiogram Date: 12/29/24 NSR, rate 77 bpm Chest X-Ray Date: 12/29/24 Stable exam; no acute process. Other Testing Carotid doppler 11/11/24 < 50% stenosis ICAs bilat
[2025-01-01] MEDS: ACETAMINOPHEN 500 MG TAB PO SCH (06:21)
[2025-01-01] MEDS: LR 60ML/HR IV SCH (06:21)
[2025-01-01] MEDS: GABAPENTIN 300 MG CAP PO SCH (06:21)
[2025-01-01] MEDS: CeleBREX 200 MG CAP PO SCH (06:21)
[2025-01-01] MEDS: LR 15ML/HR IV SCH (06:21)
[2025-01-01] MEDS: VANCOMYCIN HCL 1,250 MG in SODIUM CHLORIDE 0.9% 250 ML IV SCH (06:22)
[2025-01-01] MEDS ORDERED: ROCURONIUM BROMIDE 10 MG/ML 5 ML VIAL IV ONE ×2 (06:47→08:20)
[2025-01-01] MEDS ORDERED: DEXAMETHASONE SOD INJ 4 MG/ML VIAL ONE (06:47)
[2025-01-01] MEDS ORDERED: ONDANSETRON INJ 2 MG/ML 2 ML VIAL ONE (06:47)
[2025-01-01] MEDS ORDERED: SUCCINYLCHOLINE CHLORIDE 20 MG/ML 10 ML VIAL IV ONE (06:47)
[2025-01-01] MEDS ORDERED: MIDAZOLAM HCL 1 MG/ML 2ML VIAL ONE (06:47)
[2025-01-01] MEDS ORDERED: PROPOFOL IV EMULSION 10 MG/ML 20 ML VIAL IV ONE (06:47)
[2025-01-01] MEDS ORDERED: LIDOCAINE 2% 2 ML VIAL/AMP(20MG/ML) INFIL ONE (06:47)
[2025-01-01] MEDS ORDERED: fentaNYL citrate PF 100 MCG/2 ML VIAL ONE (06:48)
[2025-01-01] MEDS ORDERED: PROMETHAZINE HCL 6.25 MG in SODIUM CHLORIDE 0.9% 50 ML IV PRN (07:15)
[2025-01-01] MEDS ORDERED: ePHEDrine sulfate 50 MG/ML AMP IV PRN (07:15)
[2025-01-01] MEDS ORDERED: HYDROmorphone INJ 1 MG/ML SYRINGE IV PRN ×2 (07:15→12:28)
[2025-01-01] MEDS ORDERED: fentaNYL citrate PF 100 MCG/2 ML VIAL IV PRN (07:15)
[2025-01-01] MEDS ORDERED: ATROPINE SULFATE 0.1 MG/ML 10ML SYR IV PRN (07:15)
[2025-01-01] MEDS ORDERED: ONDANSETRON INJ 2 MG/ML 2 ML VIAL IV PRN ×2 (07:15→12:28)
--- NOTE | 2025-01-01 07:40 | History & Physical Bridge Note ---
Date of Service January 01, 2025 History & Physical Bridge Note I have examined the patient, reviewed the History & Physical and in the interval since the performance of the History & Physical I have noted the following changes of clinical significance: no changes noted
--- NOTE | 2025-01-01 07:43 | History & Physical Report ---
Date of Service January 01, 2025 Assessment & Plan (1) Myelopathy concurrent with and due to spinal stenosis of cervical region: Plan: C5 corpectomy, C4-C6 fusion History of Present Illness Chief Complaint: Neck and arm pain. No family Primary Care Provider: Odalis Ellis PA-C This is a 69-year-old female who was described persistent neck and arm pain and numbness she is here for surgical invention. Allergies Allergy/AdvReac Type Severity Reaction Status Date / Time Tetanus Vaccines and Toxoid Allergy Intermediate hives at Verified 01/01/25 06:04 injection site Penicillins AdvReac Mild yeast Verified 01/01/25 06:04 infection Home Medications Medication Instructions Recorded Confirmed Type lisinopril 20 mg tablet 20 mg PO QAM 09/08/20 01/01/25 History acetaminophen 500 mg tablet 500 mg PO UD PRN Pain 12/14/20 01/01/25 History (Tylenol Extra Strength) melatonin 10 mg tablet 10 mg PO HS PRN Sleep 09/07/23 01/01/25 History escitalopram oxalate 5 mg tablet 5 mg PO QAM 11/14/23 01/01/25 History cholecalciferol (vitamin D3) 50 50 mcg PO DAILY 12/22/24 01/01/25 History mcg (2,000 unit) capsule (Vitamin D3) rosuvastatin 10 mg tablet 10 mg PO QAM 12/22/24 01/01/25 History Past Med/Surg History Problem List (Updated 01/01/25 @ 07:43 by Venkata Peng DO) Myelopathy concurrent with and due to spinal stenosis of cervical region Abnormal CT of liver Encounter for pre-operative examination Hypertension Medical History (Updated 01/01/25 @ 07:43 by Venkata Peng DO) Systolic murmur no echo, cardio eval after surgery Carotid artery stenosis < 50% stenosis ICAs bilat Prediabetes Anxiety and depression History of urinary incontinence Hx of hyperlipidemia History of kidney stones SPENCER (nonalcoholic steatohepatitis) Liver nodule no need to follow with Dr Jacob any longer per patient Hypertension controlled, stable per pt History of asthma Childhood Surgical History History of nephrectomy, right non functioning kidney per patient, removed 04/20/2022 [facility] [place], follows with Dr camacho History of surgery Laparoscopic Robotic Assisted Pyeloplasty: 12/14/20: Grade view 3, MAC#3.0, ETT 7.0 at [facility] History of cystoscopy with stent H/O bladder repair surgery Bladder sling H/O foot surgery Right History of lithotripsy x8 History of colonoscopy 2018 [place] teeth removed History of tubal ligation History of carpal tunnel surgery Right 08/2023, left CTR and left ulnar nerve sx. 11/21/23, right CTR and right ulnar nerve sx. Family History Grandmother No problems noted. Mother Family history of esophageal cancer Throat cancer Lung cancer History of stroke Father Lung cancer Grandmother (Maternal) Diabetes Other No family history of adverse response to anesthesia Social History Smoking Status: Never smoker Second Hand Exposure: Yes (hx growing up, parents smoked); Do You Dip or Chew Tobacco: No; Tobacco Cessation Education Requested by Patient: No Hx Alcohol Use: Yes Alcohol type: beer Hx Substance Use: No Preferred Language: Slovenian Communication Ability: Effective Visual Impairment: No Limitations Ed Manager Required: No Beliefs That Will Affect Care: None Current Living Situation: Alone Current Living Situation Comment: is in a [facility] care facility Other Information That Helps Us Care for You: No Feels Safe at Home: Yes Safety Concerns: Feels Safe At This Time Assistive Devices: Glasses Physical Exam Physical Exam: Patient is alert and oriented Heart regular in rhythm Lungs clear Results & Data Results & Data Vital Signs (Past 12 Hours) Vital Signs Temp Pulse Resp BP Pulse Ox O2 Del Method 01/01/25 06:06 36.4 C L 73 16 159/86 H 96 Room Air
[2025-01-01] MEDS ORDERED: ePHEDrine sulfate 50 MG/5 ML SYR ONE (08:25)
[2025-01-01] MEDS ORDERED: KETAMINE HCL 10MG/ML SYR ONE (08:42)
[2025-01-01] MEDS ORDERED: SUGAMMADEX SODIUM 200 MG/2 ML VIAL IV ONE (09:37)
[2025-01-01] MEDS: FLOSEAL HEMOSTATIC MATRIX 10ML TOP ONE (09:38)
[2025-01-01] MEDS: ceFAZolin 330 MG/ML 1 GM VIAL ONE (09:40)
--- NOTE | 2025-01-01 09:48 | Operative Report ---
Post Operative Report Pre & Post Diagnosis Operation Date: 01/01/25 07:45 Pre-Op Diagnosis: Cervical spinal stenosis with myeloradiculopathy Post-Op Diagnosis: Same I identified the patient and participated in the time-out.: Yes Procedure Operation Date: 01/01/25 07:45 Actual Procedures #1 anterior cervical corpectomy with bilateral foraminotomies C5. #2 intracervical arthrodesis C4-C6. #3 placement of Spira 23 mm cage C4-C6. #4 placement locally harvested morselized autograft combined with os designed in the cage. #5 application of K2 and plate and screws from C4-C6. Surgeon Venkata Peng, DO Datawarehouse Developer Faith Ochoa Estimated Blood Loss 50 Findings Consistent with Post-Op Diagnosis Specimens None Indications This is a 69-year-old female presents with above-mentioned diagnosis of failing course of nonoperative care and having decline in neurologic status she is here for surgical invention. Description of Procedure Patient was met with identified informed sent obtained. Patient was then taken to the operative suite underwent intubation placed in supine position on the Kasi table with head Ac site head. All bony prominences well-padded eyes inspected to ensure no external precipice upon the. This point the anterior cervical spine was prepped and draped in sterile fashion. The assistance of fluoroscopy identified the C5 vertebral body. A transverse incision was placed along the right anterior aspect of the cervical spine overlying his region. Blunt dissection with the assistance of bipolar electrocautery performed down to and exposing the anterior cervical spine from C4-C6. Self-retaining retractors placed. Informed complete discectomy of C4-C5 out to the uncovertebral joints bilaterally followed by C5-C6. [place] distracting pins were then placed in C4 and C6 to distract across the C5 vertebral body. Complete corpectomy was then performed including bilateral foraminotomies. Significant adhesions of bony material to the dura were noted. Endplates were then burred to subcortical bleeding bone and a 23 mm spiral cage filled with local autograft and os design bone graft tapped in position. Distracting and pressors removed and a K2 M plate and screws applied with the assistance of fluoroscopy. The incision was then copiously irrigated explored to ensure no damage to surrounding structures remaining bleeding. 10 round BISMARK drain inserted. The incision was then closed with 2 Vicryl in the fascia and a 4 Monocryl for final skin closure. Steri-Strips sterile dressing placed. Patient waken taken the PACU stable condition. Please note spinal cord monitoring was utilized at the procedure no changes noted. Faith Ochoa was present at the entire surgery and while the patient positioning complex portion of the surgery and final skin closure. I attest to the content of the Intraoperative Record and any orders documented therein. Any exceptions are noted below.
--- NOTE | 2025-01-01 10:11 | Fluoroscopy Report ---
FL cervical 2-3V CLINICAL HISTORY: C5 CORPECTOMY C4-C6 FUSION COMPARISON STUDY: Cervical spine MRI December 11, 2024. FLUOROSCOPY TIME: 14 seconds. Ka,r: 3.59 mGy FLUOROSCOPIC IMAGES: 2 FINDINGS: Fluoroscopy was provided during C5 corpectomy and C4-C6 anterior discectomy and fusion. Nicolle gical drain is in place. Endotracheal and nasogastric tubes are partially imaged. There are no unexpe cted radiopaque foreign bodies. IMPRESSION: Fluoroscopy provided during C5 corpectomy and C4-C6 anterior fusion. ACT 112: Negative or not required by law. Electronically signed by: Patrick Matthews M.D. 01/01/2025 10:10 AM
[2025-01-01] MEDS ORDERED: DO NOT ADMINISTER PNEUMOCOCCAL VACCINE PRN (12:28)
[2025-01-01] MEDS ORDERED: ACETAMINOPHEN 1,000 MG/100 ML VIAL IV PRN (12:28)
[2025-01-01] MEDS ORDERED: ALUMINUM/MAGNESIUM SUSP 30 ML UDC PO PRN (12:28)
[2025-01-01] MEDS ORDERED: HYDROmorphone INJ 0.5 MG/0.5 ML SYR IV PRN (12:28)
[2025-01-01] MEDS ORDERED: PROMETHAZINE 12.5 MG/50.5 ML BAG IV PRN (12:28)
[2025-01-01] MEDS ORDERED: hydrOXYzine HCl 25 MG TAB PO PRN (12:28)
[2025-01-01] MEDS ORDERED: MAGNESIUM HYDROXIDE SUSP 30 ML UDC PO PRN (12:28)
[2025-01-01] MEDS ORDERED: RACEPINEPHRINE 2.25% NEBU SOLN 0.5 ML VIAL INH PRN (12:28)
[2025-01-01] MEDS ORDERED: METOCLOPRAMIDE HCL INJ 5 MG/ML 2 ML VIAL IV PRN (12:28)
[2025-01-01] MEDS ORDERED: LORazepam 2 MG/1 ML VIAL IV PRN (12:28)
[2025-01-01] MEDS ORDERED: traMADol HCL 50 MG TABLET PO PRN (12:28)
[2025-01-01] MEDS ORDERED: FAMOTIDINE 20 MG TAB PO PRN (12:28)
[2025-01-01] MEDS ORDERED: dexAMETHasone 8 MG in SYRINGE 0 ML IV PRN (12:28)
[2025-01-01] MEDS ORDERED: bisacodyL 10 MG SUPP PR PRN (12:28)
[2025-01-01] MEDS ORDERED: ONDANSETRON 4 MG OD TAB PO PRN (12:28)
[2025-01-01] MEDS ORDERED: diphenhydrAMINE Capsule 25 MG CAP PO PRN (12:28)
[2025-01-01] MEDS ORDERED: LORazepam 0.5 MG TAB PO PRN (12:28)
[2025-01-01] MEDS ORDERED: SOD PHOSPHATE/SOD BIPHOSPHATE ENEMA 132 ML BTL PR PRN (12:28)
[2025-01-01] MEDS ORDERED: DO NOT ADMINISTER FLU VACCINE PRN (12:28)
[2025-01-01] MEDS ORDERED: NALOXONE HCL 0.4 MG/1 ML VIAL/CARP IV PRN (12:28)
--- NOTE | 2025-01-01 13:03 | Consultation ---
Date of Consultation January 01, 2025 Assessment & Plan (1) Myelopathy concurrent with and due to spinal stenosis of cervical region: (2) Hypertension: (3) Anxiety and depression: (4) Hypertension: (5) Hx of hyperlipidemia: Plan The patient is a 69-year-old female who presents to the hospital on 01/01/2025 s/p C5 corpectomy, C4/C6 fusion. We are consulted for medical management Cervical myelopathy: S/p C5 corpectomy, C4-C6 fusion 01/01: -Pain control, DVT proph, PT/OT per primary team Hx HTN/HLD: -Continue home statin/lisinopril Hx vitamin D deficiency: -Continue vit d Hx anxiety: -Continue lexapro Labs ordered for tomorrow morning. We will follow with you. Please reach out with questions. A total of 45 minutes were spent on chart review/reviewing diagnostic d heather/physical exam plan of care/discussion with consultants DVT prophylaxis per primary team Supervising Physician Co-Signing Physician Notes Patient seen and examined at bedside. Patient doing well today. States she has some pain around the surgical site, otherwise doing well. Will monitor Hgb, creatinine post op, monitor hemodynamics for fevers, encourage incentive spiormetry. I have seen and discussed the case with the collaborating advanced practitioner. I agree with the above H&P. I have reviewed and confirmed the patients medical history, the findings on physical examination, and the patients diagnosis and treatment plan with Dean Pena NP and agree with the information documented. I spent a total of 20 minutes coordinating, documenting, and providing care for this patient excluding time spent in the performance of separately billed services. All of the aforementioned completed outside of collaborating with the assigned advanced practitioner for a full treatment plan. I have reviewed the advanced practitioner's documentation, and I agree with, and take responsibility for the plan of care History of Present Illness Requesting Physician: Dr. Peng Reason for Consultation: postop medical management Attending Physician: Venkata Peng, DO History of Present Illness The patient is a 69-year-old female with a past medical history of vitamin D deficiency, anxiety, HTN, HLD who presents to the hospital on 01/01/2025 s/p C5 corpectomy, C4-C6 fusion with Dr. Peng. We are asked to see the patient for postop medical management. On exam, patient reports her pain is controlled. Denies any shortness of breath or chest pain. Denies any weakness/numbness/tingling. Allergies Allergy/AdvReac Type Severity Reaction Status Date / Time Tetanus Vaccines and Toxoid Allergy Intermediate hives at Verified 01/01/25 06:04 injection site Penicillins AdvReac Mild yeast Verified 01/01/25 06:04 infection Home Medications Medication Instructions Recorded Confirmed Type lisinopril 20 mg tablet 20 mg PO QAM 09/08/20 01/01/25 History acetaminophen 500 mg tablet 500 mg PO UD PRN Pain 12/14/20 01/01/25 History (Tylenol Extra Strength) melatonin 10 mg tablet 10 mg PO HS PRN Sleep 09/07/23 01/01/25 History escitalopram oxalate 5 mg tablet 5 mg PO QAM 11/14/23 01/01/25 History cholecalciferol (vitamin D3) 50 50 mcg PO DAILY 12/22/24 01/01/25 History mcg (2,000 unit) capsule (Vitamin D3) rosuvastatin 10 mg tablet 10 mg PO QAM 12/22/24 01/01/25 History oxycodone 5 mg tablet 5 mg PO Q6H PRN pain #30 tabs 01/01/25 Rx tramadol 50 mg tablet 50 mg PO Q6H PRN pain, moderate 01/01/25 Rx #30 tabs Patient History Medical History Systolic murmur no echo, cardio eval after surgery Carotid artery stenosis < 50% stenosis ICAs bilat Prediabetes Anxiety and depression History of urinary incontinence Hx of hyperlipidemia History of kidney stones SPENCER (nonalcoholic steatohepatitis) Liver nodule no need to follow with Dr Jacob any longer per patient Hypertension controlled, stable per pt History of asthma Childhood Surgical History History of nephrectomy, right non functioning kidney per patient, removed 04/20/2022 [facility] [place] [place], follows with Dr camacho History of surgery Laparoscopic Robotic Assisted Pyeloplasty: 12/14/20: Grade view 3, MAC#3.0, ETT 7.0 at [facility] History of cystoscopy with stent H/O bladder repair surgery Bladder sling H/O foot surgery Right History of lithotripsy x8 History of colonoscopy 2018 [place] teeth removed History of tubal ligation History of carpal tunnel surgery Right 08/2023, left CTR and left ulnar nerve sx. 11/21/23, right CTR and right ulnar nerve sx. Family History Grandmother No problems noted. Mother Family history of esophageal cancer Throat cancer Lung cancer History of stroke Father Lung cancer Grandmother (Maternal) Diabetes Other No family history of adverse response to anesthesia Social History Smoking Status: Never smoker Second Hand Exposure: Yes (hx growing up, parents smoked); Do You Dip or Chew Tobacco: No; Tobacco Cessation Education Requested by Patient: No Hx Alcohol Use: Yes Alcohol type: beer Hx Substance Use: No Preferred Language: Mozambican Communication Ability: Effective Visual Impairment: No Limitations Investigative Writer Required: No Beliefs That Will Affect Care: None Current Living Situation: Alone Current Living Situation Comment: is in a [facility] care facility Other Information That Helps Us Care for You: No Feels Safe at Home: Yes Safety Concerns: Feels Safe At This Time Assistive Devices: Glasses Review of Systems Review of Systems: All systems reviewed & are unremarkable except as noted in HPI & below Physical Exam Constitutional: WD/WN, vitals as above ENMT: external ear and nose normal, oropharynx normal Neck: trachea midline, no thyromegaly Respiratory: normal respiratory effort, lungs clear to auscultation Cardiovascular: RRR, no murmur, no edema Musculoskeletal: no cyanosis or clubbing, extremities motor strength 5/5 Skin: no rashes, warm and dry Neurologic: PERRL, EOMI, accommodation nl, no face palsy, no dysarthria ( Cervical drain in place) Psychiatric: A+Ox3, euthymic affect Lymphatic: no cervical or axillary lymphadenopathy Results & Data Vital Signs (Past 12 Hours) Vital Signs Temp Pulse Pulse Resp BP BP Pulse Ox 01/01/25 12:46 36.6 C 98 H 17 120/77 96 01/01/25 12:41 95 H 18 100 01/01/25 12:28 01/01/25 12:26 36.5 C 103 H 16 119/80 95 01/01/25 12:15 01/01/25 11:55 99 H 17 133/80 95 01/01/25 11:45 96 H 17 124/75 94 01/01/25 11:35 96 H 18 120/73 94 01/01/25 11:25 36.3 C L 99 H 16 123/84 92 01/01/25 11:15 98 H 16 141/92 H 93 01/01/25 11:05 99 H 15 145/89 H 94 01/01/25 10:55 100 H 15 160/96 H 93 01/01/25 10:45 100 H 17 147/91 H 95 01/01/25 10:35 99 H 18 161/97 H 95 01/01/25 10:25 100 H 16 155/95 H 93 01/01/25 10:15 99 H 17 156/89 H 93 01/01/25 10:05 100 H 18 151/95 H 91 01/01/25 09:59 36 C L 90 17 162/84 H 93 01/01/25 06:06 36.4 C L 73 16 159/86 H 96 Pulse Ox O2 Del Method O2 Del Method O2 Flow Rate O2 Flow Rate 01/01/25 12:46 Nasal Cannula 2 01/01/25 12:41 Nasal Cannula 2 01/01/25 12:28 95 Nasal Cannula 2 01/01/25 12:26 Nasal Cannula 2 01/01/25 12:15 Nasal Cannula 2 01/01/25 11:55 Nasal Cannula 2 01/01/25 11:45 Nasal Cannula 2 01/01/25 11:35 Nasal Cannula 2 01/01/25 11:25 Oxymask 4 01/01/25 11:15 Oxymask 6 01/01/25 11:05 Oxymask 8 01/01/25 10:55 Oxymask 12 01/01/25 10:45 Oxymask 12 01/01/25 10:35 Oxymask 12 01/01/25 10:25 Oxymask 12 01/01/25 10:15 Oxymask 12 01/01/25 10:05 Oxymask 12 01/01/25 09:59 Oxymask 12 01/01/25 06:06 Room Air Diagnostic Findings Impressions Cervical Spine X-Ray 01/01/25 07:45 FL cervical 2-3V CLINICAL HISTORY: C5 CORPECTOMY C4-C6 FUSION COMPARISON STUDY: Cervical spine MRI December 11, 2024. FLUOROSCOPY TIME: 14 seconds. Ka,r: 3.59 mGy FLUOROSCOPIC IMAGES: 2 FINDINGS: Fluoroscopy was provided during C5 corpectomy and C4-C6 anterior discectomy and fusion. Surgical drain is in place. Endotracheal and nasogastric tubes are partially imaged. There are no unexpected radiopaque foreign bodies. IMPRESSION: Fluoroscopy provided during C5 corpectomy and C4-C6 anterior fusion. ACT 112: Negative or not required by law. Electronically signed by: Patrick Matthews M.D. 01/01/2025 10:10 AM
[2025-01-01] MEDS: dexAMETHasone 6 MG in SYRINGE 0 ML IV SCH (13:39)
[2025-01-01] MEDS: ceFAZolin 2000MG 2,000 MG/15 ML SYR IV SCH (16:23)
[2025-01-01] MEDS: ACETAMINOPHEN 500 MG TAB PO PRN (20:13)
[2025-01-01] MEDS: DOCUSATE SODIUM/SENNA 50/8.6MG TAB PO SCH (20:13)
[2025-01-01] MEDS: oxyCODONE HCL IR 5 MG TAB (IMMEDIATE RELEASE) PO PRN (23:18)
[2025-01-02] MEDS: POLYETHYLENE (MIRALAX) 17 GM PACK PO SCH (05:08)
[2025-01-02 07:48] LABS: Hematocrit (blood only) 35.7 % (37.0-47.0); Hemoglobin 12.2 g/dl (12.0-16.0); Mean Corpuscular Hemoglobin 31.4 pg (25.0-34.0); Mean Corpuscular Hgb Conc 34.2 g/dL (32.0-36.0); Mean Corpuscular Volume 91.8 fL (80.0-100.0); Mean Platelet Volume 9.2 fL (9.4-12.4); Platelet Count 168 K/uL (130-400); RDW Coefficient of Variation 12.9 % (11.5-14.5); RDW Standard Deviation 42.8 fL (36.4-46.3); Red Blood Count 3.89 M/uL (4.20-5.40); White Blood Count 12.35 K/ul (4.8-10.8)
[2025-01-02] MEDS: ESCITALOPRAM OXALATE 10 MG TAB PO SCH (07:48)
[2025-01-02] MEDS: ROSUVASTATIN CALCIUM 10 MG TAB PO SCH (07:48)
[2025-01-02] MEDS: lisinopril 20 MG TAB PO SCH (07:48)
[2025-01-02] MEDS: CHOLECALCIFEROL 25 MCG (1000 UNITS) TAB PO SCH (07:48)
[2025-01-02 08:02] LABS: Albumin Globulin Ratio 1.8 (0.9-2); Albumin Level 4.2 gm/dl (3.4-5.0); BUN Creatinine Ratio 20.4 (10-20); Bilirubin,Total 0.5 mg/dl (0.2-1.0); Calcium 9.2 mg/dl (8.6-10.3); Creatinine Clr Calc Pharmacy 49.9 ml/min; Globulin 2.3 gm/dl (2.5-4.0); Potassium 4.3 mmol/L (3.5-5.1); Total Protein 6.5 gm/dl (6.0-8.3)
[2025-01-02 08:11] LABS: Basophils # (auto) 0.01 K/uL (0.00-0.20); Basophils % (auto) 0.1 %; Immature Granulocytes # (auto) 0.06 K/uL (0.01-0.20); Immature Granulocytes % (auto) 0.5 %; Lymphocytes # (auto) 0.98 K/uL (1.20-3.40); Lymphocytes % (auto) 7.9 %; Monocytes # (auto) 0.16 K/uL (0.11-0.59); Monocytes % (auto) 1.3 %; Neutrophils # (auto) 11.14 K/uL (1.40-6.50); Neutrophils % (auto) 90.2 %; RBC Morphology Unremarkable
--- NOTE | 2025-01-02 08:57 | Hospitalist Progress Note ---
Date of Service January 02, 2025 Assessment & Plan (1) Myelopathy concurrent with and due to spinal stenosis of cervical region: (2) Hypertension: (3) Anxiety and depression: (4) Hx of hyperlipidemia: Plan The patient is a 69-year-old female who presents to the hospital on 01/01/2025 s/p C5 corpectomy, C4/C6 fusion. We are consulted for medical management Cervical myelopathy: S/p C5 corpectomy, C4-C6 fusion on 01/01 -Per ortho for pain control, wound care, anticoagulation and activities -Monitor H&H (hgb stable at 12.2 today) -Continue incentive spirometry, PT/OT when appropriate -Pain control, DVT proph, PT/OT per primary team Hx HTN/HLD: -Continue home statin/lisinopril Hx vitamin D deficiency: -Continue Vit D Hx anxiety: -Continue Lexapro DVT Ppx: SCDs Dispo: Per primary service Patient seen in collaboration with Dr. Leon. I spent a total of 40 minutes coordinating, documenting, and providing care for this patient excluding time spent in the performance of separately billed services or time spent by another provider/QHP. Admission and Anticipated Discharge Date Admission Date: January 01, 2025 Supervising Physician Co-Signing Physician Notes I have seen and discussed the case with the collaborating advanced practitioner. I agree with the above PN. I have reviewed and confirmed the patients medical history, the findings on physical examination, and the patients diagnosis and treatment plan with Kal BURNETT and agree with the information document Labs stable, possible dispo tomorrow I have reviewed the advanced practitioner's documentation, and I agree with, and take responsibility for the plan of care Subjective Seen and examined in 302. Feeling some pressure around surgical site. Dr. Peng to advance diet for lunch. We discussed sticking to soft foods. No F/C, lightheadedness, CP, SOB, N/V, abd pain, dysuria, diarrhea or constipation. Review of Systems Review of Systems: At least ten systems reviewed and negative except as noted in the HPI. Physical Exam Physical Exam: Gen: WD/WN, NAD, sitting in bedside chair, A&Ox3 HEENT: Normocephalic, atraumatic, conjunctivae moist, sclerae anicteric Neck: C-collar in place. Anterior cervical dressing c/d/i, BISMARK drain visualized Lung: Clear to Auscultation bilaterally, no wheezes/rales/rhonchi Heart: Regular rate, regular rhythm Abdomen: Soft, NT, ND +BS x 4 Extremities: no edema Skin: Warm, no rash Results & Data Results & Data Vital Signs (Past 12 Hours) Vital Signs Temp Pulse Pulse Resp BP BP Pulse Ox 01/02/25 07:46 94 01/02/25 07:35 36.6 C 75 17 119/71 96 01/02/25 07:30 79 16 96 01/02/25 05:13 36.5 C 78 21 131/78 97 01/02/25 03:23 36.5 C 80 19 121/71 95 01/02/25 02:59 79 17 93 01/02/25 01:07 36.5 C 90 19 116/70 94 01/02/25 00:00 94 H 18 96 01/01/25 23:00 36.5 C 95 H 18 134/81 96 01/01/25 21:03 36.7 C 97 H 19 129/79 94 O2 Del Method O2 Flow Rate 01/02/25 07:46 Room Air 01/02/25 07:35 Nasal Cannula 2 01/02/25 07:30 Nasal Cannula 2 01/02/25 05:13 Nasal Cannula 2 01/02/25 03:23 Nasal Cannula 2 01/02/25 02:59 Nasal Cannula 2 01/02/25 01:07 Nasal Cannula 2 01/02/25 00:00 Nasal Cannula 2 01/01/25 23:00 Nasal Cannula 2 01/01/25 21:03 Nasal Cannula 2 Laboratory Results Short CBC 01/02/25 Range/Units 05:22 WBC 12.35 H (4.8-10.8) K/ul Hgb 12.2 (12.0-16.0) g/dl Hct 35.7 L (37.0-47.0) % Plt Count 168 (130-400) K/uL BMP 01/02/25 05:22 Sodium 138 Potassium 4.3 Chloride 104 Carbon Dioxide 26 BUN 21 Creatinine 1.03 Glucose 178 H Calcium 9.2 Liver Function 01/02/25 Range/Units 05:22 Total Bilirubin 0.5 (0.2-1.0) mg/dl AST 16 (13-39) U/L ALT 10 (7-52) U/L Alkaline Phosphatase 58 (34-104) U/L Albumin 4.2 (3.4-5.0) gm/dl Diagnostic Findings Cervical Spine X-Ray 01/01/25 07:45 FL cervical 2-3V CLINICAL HISTORY: C5 CORPECTOMY C4-C6 FUSION COMPARISON STUDY: Cervical spine MRI December 11, 2024. FLUOROSCOPY TIME: 14 seconds. Ka,r: 3.59 mGy FLUOROSCOPIC IMAGES: 2 FINDINGS: Fluoroscopy was provided during C5 corpectomy and C4-C6 anterior discectomy and fusion. Surgical drain is in place. Endotracheal and nasogastric tubes are partially imaged. There are no unexpected radiopaque foreign bodies. IMPRESSION: Fluoroscopy provided during C5 corpectomy and C4-C6 anterior fusion. ACT 112: Negative or not required by law. Electronically signed by: Patrick Matthews M.D. 01/01/2025 10:10 AM
--- NOTE | 2025-01-02 10:06 | Orthopedic Progress Note ---
Date of Service January 02, 2025 Assessment & Plan (1) Myelopathy concurrent with and due to spinal stenosis of cervical region: Plan: At this time we will continue with a soft diet. I will maintain the BISMARK drain another 24 hours. Anticipate discharge home tomorrow. Admission and Anticipated Discharge Date Admission Date: January 01, 2025 Subjective Patient's arm symptoms have improved. She is having some soreness with swallowing. No hoarseness. Physical Exam Physical Exam: Patient is in the chair at the bedside. The BISMARK drain is functioning. Good strength testing. Results & Data Vital Signs (Past 12 Hours) Vital Signs Temp Pulse Pulse Resp BP BP Pulse Ox 01/02/25 07:46 94 01/02/25 07:35 36.6 C 75 17 119/71 96 01/02/25 07:30 79 16 96 01/02/25 05:13 36.5 C 78 21 131/78 97 01/02/25 03:23 36.5 C 80 19 121/71 95 01/02/25 02:59 79 17 93 01/02/25 01:07 36.5 C 90 19 116/70 94 01/02/25 00:00 94 H 18 96 01/01/25 23:00 36.5 C 95 H 18 134/81 96 O2 Del Method O2 Flow Rate 01/02/25 07:46 Room Air 01/02/25 07:35 Nasal Cannula 2 01/02/25 07:30 Nasal Cannula 2 01/02/25 05:13 Nasal Cannula 2 01/02/25 03:23 Nasal Cannula 2 01/02/25 02:59 Nasal Cannula 2 01/02/25 01:07 Nasal Cannula 2 01/02/25 00:00 Nasal Cannula 2 01/01/25 23:00 Nasal Cannula 2
[2025-01-03 05:53] LABS: Hemoglobin 11.4 g/dl (12.0-16.0); Mean Corpuscular Hemoglobin 30.7 pg (25.0-34.0); Mean Corpuscular Hgb Conc 33.5 g/dL (32.0-36.0); Mean Corpuscular Volume 91.6 fL (80.0-100.0); Mean Platelet Volume 8.8 fL (9.4-12.4); Platelet Count 153 K/uL (130-400); RDW Standard Deviation 43.4 fL (36.4-46.3); Red Blood Count 3.71 M/uL (4.20-5.40); White Blood Count 13.46 K/ul (4.8-10.8)
[2025-01-03 06:09] LABS: BUN Creatinine Ratio 27.8 (10-20); Calcium 9.1 mg/dl (8.6-10.3); Creatinine Clr Calc Pharmacy 44.7 ml/min; Potassium 4.4 mmol/L (3.5-5.1)
--- NOTE | 2025-01-03 10:41 | Discharge Summary ---
Date of Service January 03, 2025 Admission HPI Per Admitting Provider This is a 69-year-old female who was described persistent neck and arm pain and numbness she is here for surgical invention. Principal Diagnosis Cervical spondylosis with myelopathy Discharge Data Allergies Allergy/AdvReac Type Severity Reaction Status Date / Time Tetanus Vaccines and Toxoid Allergy Intermediate hives at Verified 01/01/25 06:04 injection site Penicillins AdvReac Mild yeast Verified 01/01/25 06:04 infection Consultations 01/01/25 12:28 Consult Hospitalist Routine Procedures Performed Operation Date: 01/01/25 07:45 Actual Procedures p C5 Corpectomy, C4-C6 Fusion, Spinal Cord Monitoring(Not Applicable) - Venkata Peng DO Ordered Studies 01/01/25 07:45 FL cervical 2-3V Routine Hospital Course (1) Myelopathy concurrent with and due to spinal stenosis of cervical region: Patient went anterior corpectomy and fusion trial as well as taken orthopedic for postoperative. Post ablation progressed appropriately. Swelling improved. No hoarseness. Arm and leg symptoms improving. Pain well-controlled. Subsidy discharged home. Discharge orders instructions from the chart for further review. Total Time Total Time Spent Total Time Spent (In Minutes): 20 minutes Discharge Plan Discharge Items Patient Disposition: Home - Self-Care Reason For Visit: Cervical Spinal Stenosis, Cervical Disc Disease, C Discharge Diagnosis: Cervical spinal stenosis with myeloradiculopathy Activity: As commented below Non-emergency contact: Primary Care Provider Call non-emergency contact if: you have any medication questions Follow-up/Referrals: Odalis Ellis PA-C [Primary Care Provider] - Diet: Regular Addtl Attending Provider Instructions: ACTIVITY RECOMMENDATIONS: SELF CARE INSTRUCTIONS AFTER CERVICAL FUSIONS 1. No smoking. Smoking drastically decreases the chance of a solid fusion. 2. No bending, lifting more than 5 pounds, or twisting (roll like a log when turning in bed). 3. You may shower 3 days after surgery. Thoroughly dry wound. Do not soak in the tub. 4. Cervical collar: Must be worn at all times including sleeping. You may remove the brace only to bath, eat and if you are sitting in a recliner. 5. Please walk as much as you can for exercise. Gradually increase the distance that you walk as your endurance increases. 6. You may return to previous diet. SPECIAL CARE INSTRUCTIONS: VERY IMPORTANT TO READ AND REVIEW A. Do not take any anti-inflammatory medications (i.e. Indocin, Advil, Aspirin, Naprosyn, Aleve, Motrin, etc.) as these may inhibit the chance of a solid fusion. Tylenol is okay to take. B. Your surgical incision has been closed with a cosmetic suture under the skin that will dissolve in about 6 weeks. In 14 days, you can use a pair of clean scissors and cut the suture that is left outside of the skin at the ends of your incision. C. Complications are uncommon, but please contact us if you have any signs or symptoms of: 1. wound infection (fever higher than 102.5 degrees F, redness, separation of wound, drainage, or increasing pain from the incision) 2. blood clots in legs (pain, swelling, redness and warmth in legs) 3. urinary tract infection (fever higher than 102.5 degrees, burning upon urination or increased frequency of urination) 4. nerve problems (inability to walk on your toes or heels, numbness, loss of bowel or bladder control) 5. any other symptoms that concern you. D. Please call the office at if you have any concerns or questions about your operation or recovery. MANAGING PAIN AFTER SPINAL SURGERY 1. Narcotic medication is intended for short-term use and will be provided for surgical pain. Surgical pain usually lasts for a period of 4-6 weeks. Narcotic medication includes Percocet, Vicodin, Darvocet, Tylenol #3 or Lortab. 2. Longer-term pain is more appropriately treated with non-narcotic medication such as Tylenol ES. 3. Muscle spasm is not appropriately treated with narcotics. Muscle relaxers such as Soma, Flexeril or Skelaxin can be used along with Tylenol ES. 4. Remember that we all live with some "aches and pains". This is not unusual or uncommon after an injury or as we get older. 5. We will provide appropriate medication within the normal guidelines of their prescribed use. We will also be very cautious and aware of potential abuse and extended duration of patients' medication needs. 6. Please allow 2-3 days to process refills. Prescriptions will not be mailed but must be picked up at the office. FOLLOW UP VISIT: Keep your scheduled follow-up appointment. Any questions, please call the office at . Pending Studies at Discharge: No Stand-Alone Forms: My [facility], Smoking Cessation Medications and DC Order Prescriptions: New tramadol 50 mg tablet 50 mg PO Q6H PRN (Reason: pain, moderate) Qty: 30 0RF oxycodone 5 mg tablet 5 mg PO Q6H PRN (Reason: pain) Qty: 30 0RF Continued lisinopril 20 mg tablet 20 mg PO QAM acetaminophen [Tylenol Extra Strength] 500 mg Tablet 500 mg PO UD PRN (Reason: Pain) melatonin 10 mg Tablet 10 mg PO HS PRN (Reason: Sleep) escitalopram oxalate 5 mg Tablet 5 mg PO QAM rosuvastatin 10 mg Tablet 10 mg PO QAM cholecalciferol (vitamin D3) [Vitamin D3] 50 mcg (2,000 unit) Capsule 50 mcg PO DAILY Discharge Orders: Discharge Order (Routine); Ordered 01/03/25 Ordered By: Venkata Peng Admission Data Admit Date/Time: 01/01/25 09:52 Attending Provider: Venkata Peng Admit Provider: Venkata Peng Primary Care Provider: Odalis Ellis Other Providers: Chapis Angeles
--- NOTE | 2025-01-03 11:07 | Hospitalist Progress Note ---
Date of Service January 03, 2025 Assessment & Plan (1) Myelopathy concurrent with and due to spinal stenosis of cervical region: (2) Hypertension: (3) Anxiety and depression: (4) Hx of hyperlipidemia: Plan The patient is a 69-year-old female who presents to the hospital on 01/01/2025 s/p C5 corpectomy, C4/C6 fusion. We are consulted for medical management Cervical myelopathy: S/p C5 corpectomy, C4-C6 fusion on 01/01 -Per ortho for pain control, wound care, anticoagulation and activities -Monitor H&H (hgb stable at 11.4 today) -Continue incentive spirometry, PT/OT when appropriate -Pain control, DVT proph, PT/OT per primary team Hx HTN/HLD: -Continue home statin/lisinopril Hx vitamin D deficiency: -Continue Vit D Hx anxiety: -Continue Lexapro DVT Ppx: SCDs Dispo: Discharge to home today Patient seen in collaboration with Dr. Leon. I spent a total of 39 minutes coordinating, documenting, and providing care for this patient excluding time spent in the performance of separately billed services or time spent by another provider/QHP. Admission and Anticipated Discharge Date Admission Date: January 01, 2025 Supervising Physician Co-Signing Physician Notes I have seen and discussed the case with the collaborating advanced practitioner. I agree with the above PN. I have reviewed and confirmed the patients medical history, the findings on physical examination, and the patients diagnosis and treatment plan with Amauri BURNETT and agree with the information document No medical changes to plan. Dispo appropriate I have reviewed the advanced practitioner's documentation, and I agree with, and take responsibility for the plan of care Subjective Pt feels well this morning. She states she slept better since they removed the egg crate. The collar causes her discomfort. She is eating/drinking normally. She is up and moving around well. She continues to have some UE numbness, but the tightness has resolved. She denies f/c/s, chest pain, sob, n/v. She is planning to discharge later today. Review of Systems Review of Systems: All systems reviewed & are unremarkable except as noted in HPI & below Physical Exam Physical Exam: Gen: WD/WN, F, sitting up in bedside chair, NAD, A&O x3 HEENT: Normocephalic, atraumatic, conjunctivae moist, sclerae anicteric, mucous membranes moist. Neck: C collar in place, dressing CDI, tamera drainage serosanginous Lung: Clear to Auscultation bilaterally, no wheezes/rales/rhonchi Heart: Regular rate, regular rhythm, no murmurs, rubs, or gallops Abdomen: Soft, NT, ND +BS x 4 Extremities: No edema Skin: Warm, no rash, negative turgor. Results & Data Results & Data Vital Signs (Past 12 Hours) Vital Signs Temp Pulse Pulse Resp BP BP Pulse Ox 01/03/25 07:36 36.7 C 70 14 130/72 97 01/03/25 07:00 76 16 95 01/03/25 03:34 70 16 96 01/03/25 03:20 36.6 C 75 16 115/58 L 95 01/02/25 23:04 68 16 96 O2 Del Method 01/03/25 07:36 Nasal Cannula 01/03/25 07:00 Room Air 01/03/25 03:34 Room Air 01/03/25 03:20 Room Air 01/02/25 23:04 Room Air Laboratory Results I have independently reviewed and interpreted patient's cbc, bmp Medications Administered Current Inpatient Medications Acetaminophen (Acetaminophen 500 Mg Tab) 1,000 mg PO Q8H PRN PRN Reason: MILD Pain Scale 1,2,3 & Pre PT Stop: 01/31/25 12:27 Last Admin: 01/03/25 03:17 Dose: 1,000 mg Al Hydrox/Mg Hydrox/Simethicone (Aluminum/Magnesium Susp 30 Ml Udc) 30 ml PO Q6H PRN PRN Reason: Dyspepsia Stop: 01/31/25 12:27 Bisacodyl (Bisacodyl 10 Mg Supp) 10 mg IN DAILY PRN PRN Reason: Constipation Stop: 01/31/25 12:27 Epinephrine (Racepinephrine 2.25% Nebu Soln 0.5 Ml Vial) 0.5 ml INH NOW PRN PRN Reason: If stridor present Escitalopram Oxalate (Escitalopram Oxalate 10 Mg Tab) 5 mg PO QAM JENNIFER Stop: 02/01/25 08:59 Last Admin: 01/03/25 08:05 Dose: 5 mg Famotidine (Famotidine 20 Mg Tab) 20 mg PO Q12H PRN PRN Reason: Dyspepsia Stop: 01/31/25 12:27 Hydromorphone HCl (Hydromorphone Inj 0.5 Mg/0.5 Ml Syr) 0.5 mg IV Q3H PRN PRN Reason: MODERATE Pain (Scale 4,5,6) & Pre PT Stop: 01/15/25 12:27 Hydromorphone HCl (Hydromorphone Inj 1 Mg/Ml Syringe) 1 mg IV Q3H PRN PRN Reason: SEVERE Pain (Scale 7,8,9,10) Stop: 01/15/25 12:27 Dexamethasone 8 mg/ Syringe 2 mls @ 1 mls/min IV NOW PRN PRN Reason: If stridor present Influenza Virus Vaccine Quadrival (Do Not Administer Flu Vaccine) 1 each N/A PRN PRN PRN Reason: Notification Stop: 01/31/25 12:27 Lisinopril (Lisinopril 20 Mg Tab) 20 mg PO QAM JENNIFER Stop: 02/01/25 08:59 Last Admin: 01/03/25 08:05 Dose: 20 mg Lorazepam (Lorazepam 0.5 Mg Tab) 0.5 mg PO Q8H PRN PRN Reason: Sedation/Anxiety Stop: 01/31/25 12:27 Lorazepam (Lorazepam 2 Mg/1 Ml Vial) 0.5 mg IV Q8H PRN PRN Reason: Sedation/Anxiety Stop: 01/31/25 12:27 Naloxone HCl (Naloxone Hcl 0.4 Mg/1 Ml Vial/Carp) 0.1 mg IV Q5M PRN PRN Reason: Oversedation/Resp depression Stop: 01/31/25 12:27 Ondansetron HCl (Ondansetron Inj 2 Mg/Ml 2 Ml Vial) 4 mg IV Q6H PRN PRN Reason: Nausea &/or Vomiting Stop: 01/31/25 12:27 Ondansetron HCl (Ondansetron 4 Mg Od Tab) 4 mg PO Q6H PRN PRN Reason: Nausea Stop: 01/31/25 12:27 Oxycodone HCl (Oxycodone Hcl Ir 5 Mg Tab (Immediate Release)) 5 - 10 mg PO Q4H PRN PRN Reason: Pain & Pre PT Stop: 01/15/25 12:27 Last Admin: 01/03/25 08:04 Dose: 5 mg Pneumococcal Polyvalent Vaccine (Do Not Administer Pneumococcal Vaccine) 1 each N/A PRN PRN PRN Reason: Notification Stop: 01/31/25 12:27 Rosuvastatin Calcium (Rosuvastatin Calcium 10 Mg Tab) 10 mg PO QAM [facility] Stop: 02/01/25 08:59 Last Admin: 01/03/25 08:05 Dose: 10 mg Senna/Docusate Sodium (Docusate Sodium/Senna 50/8.6mg Tab) 2 tab PO HS [facility] Stop: 01/31/25 20:59 Last Admin: 01/02/25 20:35 Dose: Not Given Sodium Biphosphate/Sodium Phosphate (Sod Phosphate/Sod Biphosphate Enema 132 Ml Btl) 132 ml IN ONE PRN PRN Reason: Constipation Stop: 01/31/25 12:27 Vitamin D (Cholecalciferol 25 Mcg (1000 Units) Tab) 50 mcg PO DAILY [facility] Stop: 02/01/25 08:59 Last Admin: 01/03/25 08:04 Dose: 50 mcg
[2025-01-03 11:37] VITALS: BP 122/76; PULSE 62; RESP 16; TEMP 97.3; O2SAT 96
== END 2025-01-03 12:31 | disposition home or self-care (01) | DRG 472 ==
LOC: ASU 05:56 → 3E 09:52